=== PATIENT | female | born 1940 | race Asian ===

== ENCOUNTER 2017-03-30 10:52 | Emergency (ER) | payer MEDICARE, OTHER ==
[~2017-03-30] VITALS: Ht 157.5 cm; Wt 52.2 kg
[2017-03-30 11:00] VITALS: BP 164/76
[2017-03-30 11:47] LABS: EOSINOPHILS % (AUTO) 2.6 % (0.0-3.0); LYMPHOCYTES % (AUTO) 39.4 % (20.0-45.0); MEAN CORPUSCULAR HEMOGLOBIN 29.5 PG (27.0-31.0); MEAN CORPUSCULAR HGB CONC 31.9 G/DL (32.0-36.0); MEAN CORPUSCULAR VOLUME 92 FL (80-99); MEAN PLATELET VOLUME 5.7 FL (6.5-10.1); MONOCYTES % (AUTO) 7.2 % (1.0-10.0); NEUTROPHILS % (AUTO) 49.8 % (45.0-75.0); PLATELET COUNT 241 K/UL (150-450); RED BLOOD COUNT 4.79 M/UL (4.20-5.40); RED CELL DISTRIBUTION WIDTH 10.7 % (11.6-14.8); WHITE BLOOD COUNT 5.7 K/UL (4.8-10.8)
--- NOTE | 2017-03-30 12:03 | Diagnostic Imaging Report ---
Indication: SYNCOPE Technique: One view of the chest Comparison: none Findings: Lungs and pleural spaces are clear. The heart size is upper limits of normal. Aorta is ectatic. Upper mediastinum is unremarkable. Impression: No acute process
--- NOTE | 2017-03-30 12:07 | Diagnostic Imaging Report ---
Indication: And fall, neck pain Technique: Spiral acquisitions obtained through the cervical spine. No IV contrast utilized. Multiplanar reconstructions were generated. Total dose length product 248 mGycm. CTDIvol(s) 12 mGy. Dose reduction achieved using automated exposure control Comparison: None Findings: There is slight reversal of the normal cervical lordosis. Otherwise normal bony alignment. No acute fractures. No dislocations. Vertebral body heights are preserved, except for degenerative remodeling of the C6 vertebral segment. At C5-6, there is mild degenerative disc narrowing. Posterior osteophytes result in mild narrowing of the spinal canal, may impinge slightly on the anterior aspect of the cord. There is mild narrowing of the right neural foramen. At C6-7, there is mild degenerative disc narrowing. Posterior osteophytes result in borderline narrowing of the spinal canal but probably no significant cord impingement. There is moderate right, moderate to severe left neural foraminal stenosis due to combination of facet and SI hypertrophy. A subchondral cyst, probably degenerative, is seen within the posterior C7 vertebral body. At the remaining disc levels, no significant disc bulge or protrusion, spinal stenosis, or neural foraminal narrowing. Multiple nodules are seen within the thyroid, the largest measuring 3 cm in diameter and containing fluid. Other nodules appear cystic and solid. The remaining extraspinal soft tissues are unremarkable. There are maxillary dental implants.. Impression: No acute bony trauma Degenerative changes, as detailed above Enlarged multinodular thyroid. Consider further evaluation with thyroid sonography The CT scanner at [facility] is accredited by the [employer] and the scans are performed using protocols designed to limit radiation exposure to as low as reasonably achievable to attain images of sufficient resolution adequate for diagnostic evaluation.
--- NOTE | 2017-03-30 12:10 | Diagnostic Imaging Report ---
Indications: Trip and fall, head laceration, pain Technique: Spiral acquisitions obtained through the brain. Angled axial and coronal 5 x 5 mm slices were reconstructed. Total dose length product 1361 mGycm. CTDI vol(s) 70 mGy. Dose reduction achieved using automated exposure control Comparison: None Findings: Soft tissue swelling and subcutaneous gas are seen in the right parietal region, consistent with stated clinical history of laceration. No underlying calvarial injury demonstrated. Is also some soft tissue thickening, focal, in the left posterior parietal region. Suspect that this represents a cutaneous lesion rather than acute trauma There is age-related enlargement of the ventricles and extra axial CSF spaces. There are old bilateral basal ganglia lacunar infarcts. The largest on the left results in ex vacuo dilatation of the frontal horn of the left lateral ventricle. No acute intracranial hemorrhage or edema. No mass effect or midline shift. There is periventricular deep white matter chronic ischemic change. The mastoids are clear. The visualized orbits and sinuses are unremarkable. Impression: Evidence of right parietal scalp soft tissue injury Negative for acute intracranial bleed or mass effect Old bilateral basal ganglia lacunar infarcts Other chronic and age-related changes, as described The CT scanner at [facility] is accredited by the [employer] and the scans are performed using protocols designed to limit radiation exposure to as low as reasonably achievable to attain images of sufficient resolution adequate for diagnostic evaluation.
[2017-03-30 12:12] LABS: APPEARANCE,URINE CLEAR; KETONES,URINE NEGATIVE (NEGATIVE); LEUKOCYTE ESTERASE ,URINE 1+ (NEGATIVE); NITRITE,URINE NEGATIVE (NEGATIVE); PH,URINE 7 (4.5-8.0); PROTEIN,URINE NEGATIVE (NEGATIVE); UROBILINOGEN,URINE NORMAL MG/DL (0.0-1.0)
[2017-03-30 12:16] LABS: ALANINE AMINOTRANSFERASE 18 U/L (12-78); ANION GAP 5 mmol/L (5-15); ASPARTATE AMINO TRANSFERASE 19 U/L (15-37); CALCIUM 9.8 MG/DL (8.5-10.1); CARBON DIOXIDE 31 MMOL/L (21-32); CHLORIDE 104 MMOL/L (98-107); CKMB 1.1 NG/ML (0.0-3.6); CREATININE 1.1 MG/DL (0.55-1.30); POTASSIUM 4.7 MMOL/L (3.5-5.1); SODIUM 140 MMOL/L (136-145); TOTAL PROTEIN 7.6 G/DL (6.4-8.2)
[2017-03-30 12:32] LABS: BACTERIA,URINE OCCASIONAL /HPF; RBC,URINE 0-2 /HPF (0 - 2); SQUAMOUS EPITHELIAL CELL,UR OCCASIONAL /LPF (NONE/OCC); WBC,URINE 0-2 /HPF (0 - 2)
[2017-03-30 13:00] VITALS: BP 124/85
--- NOTE | 2017-03-30 14:32 | Emergency Room Report ---
History of Present Illness General Chief Complaint: Head, Face, Neck Trauma Source: Patient Present Illness HPI 76-year-old female presents ED for evaluation. Patient brought in by EMS with scalp laceration status post fall. Patient does not recall what happened or the circumstances regarding the fall. Patient does not recall if she tripped or became dizzy and fell. Upon arrival patient complaining of headache and neck pain. 5/10, sharp, nonradiating. Denies chest pain or shortness of breath. Allergies: Coded Allergies: No Known Allergies (Unverified , 03/30/17) Patient History Past Medical History: none Past Surgical History: none Pertinent Family History: none Social History: Denies: smoking, alcohol use, drug use Last Menstrual Period: na Immunizations: UTD Reviewed Nursing Documentation: PMH: Agreed, PSxH: Agreed Nursing Documentation-PMH Past Medical History Deferred: Pt Cognitively Impaired Past Medical History: Deferred Review of Systems All Other Systems: negative except mentioned in HPI Physical Exam Vital Signs Date Time Temp Pulse Resp B/P (MAP) Pulse Ox O2 Delivery O2 Flow Rate FiO2 03/30/17 10:45 98.6 64 16 168/107 99 Room Air Sp02 EP Interpretation: reviewed, normal General Appearance: no apparent distress, alert, GCS 15, non-toxic Head: normocephalic, other - 1cm R parietal scalp laceration Eyes: bilateral eye normal inspection, bilateral eye PERRL ENT: hearing grossly normal, normal pharynx, no angioedema, normal voice Neck: full range of motion, supple/symm/no masses, tender lateral, tender midline Respiratory: chest non-tender, lungs clear, normal breath sounds, speaking full sentences Cardiovascular #1: regular rate, rhythm, no edema Cardiovascular #2: 2+ carotid (R), 2+ carotid (L), 2+ radial (R), 2+ radial (L) , 2+ dorsalis pedis (R), 2+ dorsalis pedis (L) Gastrointestinal: normal bowel sounds, non tender, soft, non-distended, no guarding, no rebound Rectal: deferred Genitourinary: normal inspection, no CVA tenderness Musculoskeletal: back normal, gait/station normal, normal range of motion, non- tender Neurologic: alert, oriented x3, responsive, motor strength/tone normal, sensory intact, speech normal Psychiatric: judgement/insight normal, memory normal, mood/affect normal, no suicidal/homicidal ideation Reflexes: 3+ bicep (R), 3+ bicep (L), 3+ tricep (R), 3+ tricep (L), 3+ knee (R) , 3+ knee (L) Skin: normal color, no rash, warm/dry, well hydrated Lymphatic: no adenopathy Procedures Laceration/Wound Repair Laceration/Wound Repair : Consent: Verbal Wound Location: head Wound's Depth, Shape: linear Wound Explored: clean Betadine Prep?: Yes Wound Debrided: minimal Wound Repaired With: kris Sterile Dressing Applied?: No Splint Applied?: No Sling Applied?: No Patient Tolerated: Well Complications: None Medical Decision Making Diagnostic Impression: Primary Impression: Scalp laceration Qualified Codes: S01.01XA - Laceration without foreign body of scalp, initial encounter Additional Impression: Head, face & neck injury Qualified Codes: S19.9XXA - Unspecified injury of neck, initial encounter; S09.90XA - Unspecified injury of head, initial encounter; S09.93XA - Unspecified injury of face, initial encounter ER Course Hospital Course 76-year-old female presents with scalp laceration status post fall. Did not remember what happened. Differential diagnoses include: AK/unstable angina, arrythmia, dehydration, CVA/ TIA Clinical course Patient placed on stretcher. on rn cardiac rehab. After initial history and physical I ordered labs, EKG, chest x-ray, IVFs, CT Brain, CT Cspine labs reviewed- no leukocytosis, hemoglobin/hematocrit ok, electrolytes okay, troponins negative EKG- NSR, no acute changes interpreted by me Chest x-ray- no acute process CT brain-unremarkable CT CSpine unremarkable C-collar cleared. Scalp laceration repaired. Patient endorsed to accepting physician However patient states that she wishes to be discharged. States she feels more awake and alert now. Recalls tripping and falling; does not believe she had a syncopal episode Patient states she wishes to go home. Understands the risks of leaving. Patient has competency to make her own decisions. Signed AMA form. I. I feel this is a highly complex case requiring extensive working including EKG/Rhythm strip, Xray/CT/US, Blood/urine lab work, repeat exams while in ED, and administration of strong opiates/narcotics for pain control, admission to hospital or close patient follow up. Diagnosis - scalp laceration, head face and neck injury patient left AMA Labs Test 03/30/17 11:26 03/30/17 12:00 White Blood Count 5.7 K/UL (4.8-10.8) Red Blood Count 4.79 M/UL (4.20-5.40) Hemoglobin 14.1 G/DL (12.0-16.0) Hematocrit 44.3 % (37.0-47.0) Mean Corpuscular Volume 92 FL (80-99) Mean Corpuscular Hemoglobin 29.5 PG (27.0-31.0) Mean Corpuscular Hemoglobin Concent 31.9 G/DL (32.0-36.0) Red Cell Distribution Width 10.7 % (11.6-14.8) Platelet Count 241 K/UL (150-450) Mean Platelet Volume 5.7 FL (6.5-10.1) Neutrophils (%) (Auto) 49.8 % (45.0-75.0) Lymphocytes (%) (Auto) 39.4 % (20.0-45.0) Monocytes (%) (Auto) 7.2 % (1.0-10.0) Eosinophils (%) (Auto) 2.6 % (0.0-3.0) Basophils (%) (Auto) 1.0 % (0.0-2.0) Sodium Level 140 MMOL/L (136-145) Potassium Level 4.7 MMOL/L (3.5-5.1) Chloride Level 104 MMOL/L (98-107) Carbon Dioxide Level 31 MMOL/L (21-32) Anion Gap 5 mmol/L (5-15) Blood Urea Nitrogen 18 mg/dL (7-18) Creatinine 1.1 MG/DL (0.55-1.30) Estimat Glomerular Filtration Rate mL/min (>60) Glucose Level 111 MG/DL (74-106) Calcium Level 9.8 MG/DL (8.5-10.1) Total Bilirubin 0.7 MG/DL (0.2-1.0) Aspartate Amino Transf (AST/SGOT) 19 U/L (15-37) Alanine Aminotransferase (ALT/SGPT) 18 U/L (12-78) Alkaline Phosphatase 66 U/L (46-116) Total Creatine Kinase 55 U/L (26-308) Creatine Kinase MB 1.1 NG/ML (0.0-3.6) Creatine Kinase MB Relative Index 2.0 Troponin I 0.000 ng/mL (0.000-0.056) Pro-B-Type Natriuretic Peptide 271 pg/mL (0-125) Total Protein 7.6 G/DL (6.4-8.2) Albumin 3.8 G/DL (3.4-5.0) Globulin 3.8 g/dL Albumin/Globulin Ratio 1.0 (1.0-2.7) Urine Color Pale yellow Urine Appearance Clear Urine pH 7 (4.5-8.0) Urine Specific [place] 1.010 (1.005-1.035) Urine Protein Negative (NEGATIVE) Urine Glucose (UA) Negative (NEGATIVE) Urine Ketones Negative (NEGATIVE) Urine Occult Blood Negative (NEGATIVE) Urine Nitrite Negative (NEGATIVE) Urine Bilirubin Negative (NEGATIVE) Urine Urobilinogen Normal MG/DL (0.0-1.0) Urine Leukocyte Esterase 1+ (NEGATIVE) Urine RBC 0-2 /HPF (0 - 2) Urine WBC 0-2 /HPF (0 - 2) Urine Squamous Epithelial Cells Occasional /LPF Urine Bacteria Occasional /HPF (NONE) EKG Diagnostic Results Rate: normal Rhythm: NSR ST Segments: no acute changes ASA given to the pt in ED: No Rhythm Strip Diag. Results EP Interpretation: yes Rhythm: NSR, no PVC's, no ectopy Chest X-Ray Diagnostic Results Chest X-Ray Diagnostic Results : Chest X-Ray Ordered: Yes # of Views/Limited/Complete: 1 View Indication: Other - syncope EP Interpretation: Yes Interpretation: no consolidation, no effusion, no pneumothorax, no acute cardiopulmonary disease Impression: No acute disease Electronically Signed by: Electronically signed by Ladonna Esparza MD CT/MRI/US Diagnostic Results CT/MRI/US Diagnostic Results #1: Imaging Test Ordered: CT head Impression no acute process CT/MRI/US Diagnostic Results #2: Imaging Test Ordered: CT Cspine Impression no acute process Last Vital Signs Date Time Temp Pulse Resp B/P (MAP) Pulse Ox O2 Delivery O2 Flow Rate FiO2 03/30/17 11:00 98.1 60 14 164/76 98 Room Air Status: improved Disposition: AGAINST MEDICAL ADVICE Condition: Stable Scripts Unable to Obtain Active Prescriptions or Reported Meds Referrals: EKATERINA DE LA ROSA (PCP) LADONNA ESPARZA M.D. Mar 30, 2017 14:32
[2017-03-30 14:48] VITALS: BP 32/75
== END 2017-03-30 14:46 | disposition left against medical advice (07) ==
LOC: EDBD 10:52 → EMR 11:30 → 2E 11:41 → UNDOADMIN 11:41 → EDBEDREQ 13:37 → EMR 14:46 → CANBEDREQ 14:55
DX: S01.01XA Laceration without foreign body of scalp, initial encounter (principal); S19.9XXA Unspecified injury of neck, initial encounter; W18.30XA Fall on same level, unspecified, initial encounter; Y92.9 Unspecified place or not applicable
CPT/HCPCS: 36415; 70450; 71010; 72125; 80053; 81003; 82550; 82553; 83880; 84484; 85025; 93005; 99284

== ENCOUNTER 2017-04-04 11:03 | Emergency (ER) | payer MEDICARE, OTHER ==
[~2017-04-04] VITALS: Ht 149.9 cm; Wt 56.7 kg
[2017-04-04] MEDS ORDERED: UNOBMED (11:19)
[2017-04-04 11:25] VITALS: BP 135/68
--- NOTE | 2017-04-04 12:18 | Emergency Room Report ---
History of Present Illness General Chief Complaint: Wound Recheck/Suture Removal Source: Patient Present Illness HPI This patient presents for staple removal. She was seen last week after a head injury. She underwent laceration repair with a staple. She has no other complaints. She is recovered and feeling well. Allergies: Coded Allergies: No Known Allergies (Unverified , 03/30/17) Patient History Past Medical History: see triage record Social History: Denies: smoking, alcohol use, drug use Reviewed Nursing Documentation: PMH: Agreed, PSxH: Agreed Nursing Documentation-PMH Past Medical History: No Stated History Review of Systems All Other Systems: negative except mentioned in HPI Physical Exam Vital Signs Date Time Temp Pulse Resp B/P (MAP) Pulse Ox O2 Delivery O2 Flow Rate FiO2 04/04/17 11:17 97.7 58 17 135/68 96 Room Air Sp02 EP Interpretation: reviewed, normal General Appearance: no apparent distress, alert, GCS 15, non-toxic Head: normocephalic, other - Scalp laceration healed with overlying scabbing. [address] Eyes: bilateral eye normal inspection, bilateral eye PERRL ENT: hearing grossly normal, normal pharynx, no angioedema, normal voice Neck: full range of motion, supple/symm/no masses Respiratory: no respiratory distress, no retraction, no accessory muscle use, speaking full sentences Gastrointestinal: normal bowel sounds, non tender, soft, non-distended, no guarding, no rebound Rectal: deferred Musculoskeletal: back normal, gait/station normal, normal range of motion, non- tender Neurologic: alert, oriented x3, responsive, motor strength/tone normal, sensory intact, speech normal Psychiatric: judgement/insight normal, memory normal, mood/affect normal, no suicidal/homicidal ideation Skin: normal color, no rash, warm/dry, well hydrated, other - See head exam Medical Decision Making Diagnostic Impression: Primary Impression: Encounter for removal of sutures ER Course The stable in the patient's scalp laceration is healed and the staple was removed without complication or incident. Last Vital Signs Date Time Temp Pulse Resp B/P (MAP) Pulse Ox O2 Delivery O2 Flow Rate FiO2 04/04/17 11:25 97.7 78 17 135/68 96 Room Air Status: improved Disposition: HOME, SELF-CARE Condition: Improved Referrals: NOT CHOSEN IPA/MD,REFERRING (PCP) Patient Instructions: Wound Check COLIANNO,DEIDRA M D.O. Apr 04, 2017 12:18
[2017-04-04 12:28] VITALS: BP 135/68
== END 2017-04-04 13:49 | disposition home or self-care (01) ==
LOC: EMR 11:54
DX: S01.01XD Laceration without foreign body of scalp, subsequent encounter (principal); Z48.02 Encounter for removal of sutures
CPT/HCPCS: 99281